=== PATIENT | male | born 1975 | race Two or more races ===

== ENCOUNTER 2018-08-25 11:21 | Emergency (ER) | payer SELFPAY ==
[~2018-08-25] VITALS: Ht 172.7 cm; Wt 70.3 kg
[2018-08-25 11:39] VITALS: BP 136/74
[2018-08-25] MEDS ORDERED: DIPHTH,PERTUSS(ACELL),TET TOX 0.5 ML DISP.SYRIN. VAX IM ONE (11:45)
[2018-08-25] MEDS ORDERED: LIDOCAINE WITH 8.4% SOD BICARB 3 ML DISP.SYRIN. INJ ONE (11:45)
--- NOTE | 2018-08-25 13:03 | RAD ---
Left hand radiograph 08/25/2018 11:44 AM INDICATION: Laceration to the thumb COMPARISON: None available. TECHNIQUE: 3 views of the left hand are provided. FINDINGS: There is no acute fracture or dislocation. Bone mineralization is within normal limits. Joint spaces are maintained. Laceration suspected at the base of the thumb. There is no soft tissue gas or osseous erosion. IMPRESSION: Laceration without acute fracture or dislocation. Electronically signed by: Chata Juan MD (08/25/2018 12:59 PM) [facility]
--- NOTE | 2018-08-25 13:16 | PHYS DOC ---
Past Medical History Past Medical History: No Pertinent History Past Surgical History: No Surgical History Alcohol Use: None Drug Use: None Adult General Chief Complaint Chief Complaint: LACERATION/AVULSION HPI HPI Patient is a 43 year old male who presents with was using a utility knife and cut his left base of thumb. The wound is gaping and bleeding is controlled. Review of Systems Review of Systems Constitutional: Denies fever or chills [] Eyes: Denies change in visual acuity, redness, or eye pain [] HENT: Denies nasal congestion or sore throat [] Respiratory: Denies cough or shortness of breath [] Cardiovascular: No additional information not addressed in HPI [] GI: Denies abdominal pain, nausea, vomiting, bloody stools or diarrhea [] : Denies dysuria or hematuria [] Musculoskeletal: Denies back pain or joint pain [] Integument: Laceration to base of left thumb. Denies rash or skin lesions [] Neurologic: Denies headache, focal weakness or sensory changes [] All other systems were reviewed and found to be within normal limits, except as documented in this note. Current Medications Current Medications Current Medications Medications (Trade) Dose Ordered Sig/Sandra Start Time Stop Time Status Last Admin Dose Admin Diphtheria/ Tetanus/Acell Pertussis (Boostrix) 0.5 ml ONCE ONCE 08/25/18 11:45 08/25/18 11:46 DC 08/25/18 11:59 0.5 ML Lidocaine/Sodium Bicarbonate (Buffered Lidocaine 1%) 6 ml 1X ONCE 08/25/18 11:45 08/25/18 11:46 DC 08/25/18 11:58 6 ML Allergies Allergies Allergies Coded Allergies Type Severity Reaction Last Updated Verified No Known Drug Allergies 08/25/18 No Physical Exam Physical Exam Constitutional: Well developed, well nourished, no acute distress, non-toxic appearance. [] HENT: Normocephalic, atraumatic, bilateral external ears normal, oropharynx moist, no oral exudates, nose normal. [] Eyes: PERRLA, EOMI, conjunctiva normal, no discharge. [] Neck: Normal range of motion, no tenderness, supple, no stridor. [] Cardiovascular:Heart rate regular rhythm, no murmur [] Lungs & Thorax: Bilateral breath sounds clear to auscultation [] Abdomen: Bowel sounds normal, soft, no tenderness, no masses, no pulsatile masses. [] Skin: Open laceration to base of left thumb. Warm, dry, no erythema, no rash. [ ] Back: No tenderness, no CVA tenderness. [] Extremities: No tenderness, no cyanosis, no clubbing, ROM intact, no edema. [] Neurologic: Alert and oriented X 3, normal motor function, normal sensory function, no focal deficits noted. [] Psychologic: Affect normal, judgement normal, mood normal. [] Current Patient Data Vital Signs Vital Signs Date Time Temp Pulse Resp B/P (MAP) Pulse Ox O2 Delivery O2 Flow Rate FiO2 08/25/18 11:39 99.0 70 16 136/74 (94 97 Room Air 99.0 EKG EKG [] Radiology/Procedures Radiology/Procedures [] Impressions: [facility] [address] [place] [address] IMAGING REPORT Signed PATIENT: RIKY BECKER ACCOUNT: [id number] : 1975 LOCATION: ER AGE: 43 SEX: M EXAM STATUS: REG ER ORD. PHYSICIAN: SAL RUTH APRN REASON: THUMB LACERATION PROCEDURE: HAND LEFT 3V Left hand radiograph 08/25/2018 11:44 AM INDICATION: Laceration to the thumb COMPARISON: None available. TECHNIQUE: 3 views of the left hand are provided. FINDINGS: There is no acute fracture or dislocation. Bone mineralization is within normal limits. Joint spaces are maintained. Laceration suspected at the base of the thumb. There is no soft tissue gas or osseous erosion. IMPRESSION: Laceration without acute fracture or dislocation. Electronically signed by: Martha Puga MD (08/25/2018 12:59 PM) [facility] DICTATED and SIGNED BY: MARTHA PUGA MD DATE: 08/25/18 1258 Course & Med Decision Making Course & Med Decision Making Patient is a 43 year old male who presents with was using a utility knife and cut his left base of thumb. The wound is gaping and bleeding is controlled. No foreign objects seen. Patient has full range of motion and strength in his thumb And Left Hand. Alert and oriented. Patient is a non-his last tetanus shot is. Bleeding has stopped. There are no foreign objects seen. Patient is given Boostrix the ED. X-ray shows no acute findings. Radial pulse present. Cap refill within normal limits. There is no swelling in the extremity or signs of infection. Patient to follow-up in 48 hours for wound recheck. Otherwise patient needs to come back in 7 days for suture removal signs of infection. Laceration Repair by me: Anesthesia: 1% lidocaine locally Location: Left base of thumb Tendon/Joint/Nerves: No injury Foreign body: None detected after copious irrigation and exploration Technique: 6 Simple Interrupted Sutures Complexity: No subcutaneous sutures/mucosal repair/edge excision Post Closure Length: 4 cm Patient's bleeding was easily controlled in the department and there is no indication of anemia. No evidence of compartment syndrome, neurologic injury, vascular injury, open joint, tendon laceration, or foreign body. Patient is appropriate for outpatient follow up. 48 hour wound check. Scar minimization instructions given. Dragon Disclaimer Dragon Disclaimer This electronic medical record was generated, in whole or in part, using a voice recognition dictation system. Departure Departure Impression: Primary Impression: Laceration Disposition: 01 HOME, SELF-CARE Condition: STABLE Referrals: NO PCP (PCP) Patient Instructions: Laceration Care, Adult Additional Instructions: Return in 7 days for suture removal or sooner for signs of infection. Keep area clean and covered. Take ibuprofen for pain if needed. Take Ibuprofen for pain. Attending Signature Attending Signature I have reviewed the PA/STRANNER's note and plan of care. I was available for consultation as needed during the patient's visit in the emergency department. I agree with the clinical impression, plan, and disposition. SAL RUTH APRN Aug 25, 2018 13:16 ROSA MARIA BARNARD DO Aug 26, 2018 09:19
== END 2018-08-25 14:47 | disposition home or self-care (01) ==
LOC: ER 11:21
DX: S61.012A Laceration without foreign body of left thumb without damage to nail, initial encounter (principal); W26.0XXA Contact with knife, initial encounter; Y93.89 Activity, other specified; Y92.89 Other specified places as the place of occurrence of the external cause; Y99.8 Other external cause status
CPT/HCPCS: 12002; 73130; 90471; 90715; 99283

== ENCOUNTER 2018-09-01 10:14 | Emergency (ER) | payer SELFPAY ==
[~2018-09-01] VITALS: Ht 167.6 cm; Wt 70.3 kg
[2018-09-01 10:31] VITALS: BP 136/74
--- NOTE | 2018-09-01 10:43 | PHYS DOC ---
Past Medical History Past Medical History: No Pertinent History Past Surgical History: No Surgical History Alcohol Use: None Drug Use: None Adult General Chief Complaint Chief Complaint: SUTURE/STAPLE REMOVAL HPI HPI Patient is a 43 year old [f__sex] who presents with [] Review of Systems Review of Systems Constitutional: Denies fever or chills [] Eyes: Denies change in visual acuity, redness, or eye pain [] HENT: Denies nasal congestion or sore throat [] Respiratory: Denies cough or shortness of breath [] Cardiovascular: No additional information not addressed in HPI [] GI: Denies abdominal pain, nausea, vomiting, bloody stools or diarrhea [] : Denies dysuria or hematuria [] Musculoskeletal: Denies back pain or joint pain [] Integument: Denies rash or skin lesions [] Neurologic: Denies headache, focal weakness or sensory changes [] Endocrine: Denies polyuria or polydipsia [] All other systems were reviewed and found to be within normal limits, except as documented in this note. Allergies Allergies Allergies Coded Allergies Type Severity Reaction Last Updated Verified No Known Drug Allergies 08/25/18 No Physical Exam Physical Exam Constitutional: Well developed, well nourished, no acute distress, non-toxic appearance. [] HENT: Normocephalic, atraumatic, bilateral external ears normal, oropharynx moist, no oral exudates, nose normal. [] Eyes: PERRLA, EOMI, conjunctiva normal, no discharge. [] Neck: Normal range of motion, no tenderness, supple, no stridor. [] Cardiovascular:Heart rate regular rhythm, no murmur [] Lungs & Thorax: Bilateral breath sounds clear to auscultation [] Abdomen: Bowel sounds normal, soft, no tenderness, no masses, no pulsatile masses. [] Skin: Warm, dry, no erythema, no rash. [] Back: No tenderness, no CVA tenderness. [] Extremities: No tenderness, no cyanosis, no clubbing, ROM intact, no edema. [] Neurologic: Alert and oriented X 3, normal motor function, normal sensory function, no focal deficits noted. [] Psychologic: Affect normal, judgement normal, mood normal. [] Current Patient Data Vital Signs Vital Signs Date Time Temp Pulse Resp B/P (MAP) Pulse Ox O2 Delivery O2 Flow Rate FiO2 09/01/18 10:31 98.0 71 18 136/74 (94) 97 Room Air 98.0 EKG EKG [] Radiology/Procedures Radiology/Procedures [] Course & Med Decision Making Course & Med Decision Making Pertinent Labs and Imaging studies reviewed. (See chart for details) [] Dragon Disclaimer Dragon Disclaimer This electronic medical record was generated, in whole or in part, using a voice recognition dictation system. Departure Departure Impression: Primary Impression: Visit for suture removal Disposition: HOME, SELF-CARE Condition: STABLE Referrals: NO PCP (PCP) Patient Instructions: Suture Removal Additional Instructions: Be very gentle with the laceration is a continues to heal. Watch closely for signs of infection. Follow-up with your primary care provider in one week for recheck or return to the emergency department if worsening. CAS GORE APRN Sep 01, 2018 10:43
== END 2018-09-01 10:45 | disposition home or self-care (01) ==
LOC: ER 10:14
DX: S61.012D Laceration without foreign body of left thumb without damage to nail, subsequent encounter (principal); X58.XXXD Exposure to other specified factors, subsequent encounter
CPT/HCPCS: 99281